=== PATIENT | male | born 1960 | race African-American/Black ===

== ENCOUNTER 2019-01-11 08:19 | Day surgery (SDC) | payer OTHER | END 2019-01-11 11:32 | disposition home or self-care (01) | LOC: FASU 08:19 ==

== ENCOUNTER 2023-04-21 09:51 | Day surgery (SDC) | payer OTHER ==
[2023-04-16 15:30] VITALS: BMI 27.3
[2023-04-21] MEDS ORDERED: GLYCOPYRROLATE 0.2 MG/1 ML VIAL ONE (10:51)
[2023-04-21] MEDS ORDERED: LIDOCAINE HCL/PF 2% SDV 5ML VIAL ONE (10:51)
[2023-04-21 11:26] VITALS: TEMP 96.9
[2023-04-21 11:34] VITALS: BP 119/75; PULSE 87; RESP 20
== END 2023-04-21 11:55 | disposition home or self-care (01) ==
LOC: FASU-ENDO 09:51
PROVIDERS: ATTEND Internal Medicine Gastroenterology
PROC: 0DJD8ZZ Inspection of Lower Intestinal Tract, Via Natural or Artificial Opening Endoscopic (ICD-10-PCS; principal; 2023-04-21 11:01)
DX: Z12.11 Encounter for screening for malignant neoplasm of colon (principal); Z86.010 Personal history of colon polyps

== ENCOUNTER 2023-09-15 10:52 | Day surgery (SDC) | payer OTHER ==
[2023-09-11 13:14] VITALS: BMI 25.9
[2023-09-15 12:47] VITALS: RESP 18
[2023-09-15 12:49] VITALS: BP 131/67; PULSE 89; TEMP 97
== END 2023-09-15 12:50 | disposition home or self-care (01) ==
LOC: FASU-ENDO 10:52
PROVIDERS: ATTEND Internal Medicine Gastroenterology
PROC: 0DB68ZX Excision of Stomach, Via Natural or Artificial Opening Endoscopic, Diagnostic (ICD-10-PCS; 2023-09-15)
PROC: 0DB98ZX Excision of Duodenum, Via Natural or Artificial Opening Endoscopic, Diagnostic (ICD-10-PCS; principal; 2023-09-15 11:55)
DX: K29.60 Other gastritis without bleeding (principal); K31.7 Polyp of stomach and duodenum; K31.89 Other diseases of stomach and duodenum; R10.13 Epigastric pain
CPT/HCPCS: 88305-TC; 88342-TC